=== PATIENT | male | born 1940 | race Caucasian/White ===

== ENCOUNTER 2019-08-31 05:56 | Day surgery (SDC) | payer MEDICARE, BC ==
[~2019-08-31 05:56] MED LIST: DEXAMETHASONE SOD PHOSPHATE 10 MG/ML 1 ML VIAL IV ONE; HEPARIN SODIUM,PORCINE 5,000 UNIT/ML 1 ML VIAL SQ ONE; HYDROmorphone 0.5 MG/0.5 ML SYRINGE IVP PRN; LACTATED RINGERS 1,000 ML IV SCH; SCOPOLAMINE 1.5MG/72HR PATCH TRANSDERM ONE
[2019-08-31] MEDS ORDERED: CLINDAMYCIN 900 MG in DEXTROSE 5% IN WATER 50 ML IVPB ONE ×2 (06:00)
[2019-08-31] MEDS ORDERED: LEVOFLOXACIN 500MG-D5W PMX 500 MG in DEXTROSE/WATER 1 100ML.BAG IVPB ONE (06:00)
[2019-08-31 06:34] VITALS: BP 138/64; PULSE 53; RESP 16; TEMP 97.3
[2019-08-31] MEDS: LIDOCAINE 1% 20 ML VIAL (10MG/ML) FOR IV START INTRADERMA PRN ×2 (06:48→07:00)
[2019-08-31] MEDS: ONDANSETRON 4 MG/2 ML VIAL IVP ONE ×2 (06:50→07:00)
[2019-08-31 06:57] LABS: Glucose,Whole Blood 94 mg/dL (75-99)
[2019-08-31 06:58] LABS: Basophils % (A) 0 %; Eosinophils # (A) 0.2 k/uL (0-0.7); Eosinophils % (A) 6 %; HCT 35.7 % (39.0-53.0); HGB 11.7 gm/dL (13.0-17.5); Lymphocytes # (A) 0.7 k/uL (1.0-4.8); Lymphocytes % (A) 19 %; MCH 28.7 pg (25.0-35.0); MCHC 32.6 g/dL (31.0-37.0); Mean Platelet Volume 7.6; Monocytes # (A) 0.3 k/uL (0-1.0); Monocytes % (A) 8 %; Neutrophils # (A) 2.2 k/uL (1.3-7.7); Neutrophils % (A) 64 %; Platelet Count 123 k/uL (150-450); RBC 4.06 m/uL (4.30-5.90); RDW 13.7 % (11.5-15.5); WBC 3.5 k/uL (3.8-10.6)
[2019-08-31 07:19] LABS: African American GFR (CKD) >90 (>60 ml/min/1.73 sqM); Anion Gap 5 mmol/L; Blood Urea Nitrogen 27 mg/dL (9-20); Calcium 9.4 mg/dL (8.4-10.2); Carbon Dioxide 28 mmol/L (22-30); Chloride 105 mmol/L (98-107); Glucose 97 mg/dL (74-99); Potassium 4.4 mmol/L (3.5-5.1); Sodium 138 mmol/L (137-145)
[2019-08-31] MEDS ORDERED: BUPIVACAINE (PF) 0.25% 30 ML VIAL SQ ONE (07:33)
== END 2019-08-31 08:09 | disposition home or self-care (01) ==
LOC: OR 05:56
PROVIDERS: ATTEND Surgery
DX: K40.90 Unilateral inguinal hernia, without obstruction or gangrene, not specified as recurrent (principal); I10 Essential (primary) hypertension; E78.5 Hyperlipidemia, unspecified; J45.909 Unspecified asthma, uncomplicated; E11.9 Type 2 diabetes mellitus without complications; H91.90 Unspecified hearing loss, unspecified ear; R41.3 Other amnesia; Z90.49 Acquired absence of other specified parts of digestive tract; Z86.718 Personal history of other venous thrombosis and embolism; Z79.01 Long term (current) use of anticoagulants; Z79.84 Long term (current) use of oral hypoglycemic drugs; Z79.82 Long term (current) use of aspirin; Z79.52 Long term (current) use of systemic steroids; Z79.899 Other long term (current) drug therapy; Z88.1 Allergy status to other antibiotic agents; Z88.2 Allergy status to sulfonamides; Z91.048 Other nonmedicinal substance allergy status; Z91.09 Other allergy status, other than to drugs and biological substances; Z53.9 Procedure and treatment not carried out, unspecified reason
CPT/HCPCS: 80048; 85025; J2405

== ENCOUNTER 2019-09-28 08:08 | Day surgery (SDC) | payer MEDICARE, BC ==
[2019-09-23 15:10] VITALS: BMI 25.0
--- NOTE | 2019-09-28 07:40 | P.GSHP ---
History of Present Illness H&P Date: 09/28/19 Chief Complaint: Left inguinal hernia 78-year-old male seen in June. Patient has complaints of a bulge in the left groin. Present for the last few years. Seemed to start after lifting a heavy [place]. Mild discomfort at times. No significant size changes recently. No symptoms on the right. Past Medical History Past Medical History: Cancer, Diabetes Mellitus, Deep Vein Thrombosis (DVT), Hearing Disorder / Deafness, Hyperlipidemia, Hypertension, Memory Impairment, Osteoarthritis (OA) Additional Past Medical History / Comment(s): LEFT LEG DVT 06/12/2016.Right lower extremity DVT about 20 years ago after injury to that leg. History of Any Multi-Drug Resistant Organisms: None Reported Past Surgical History: Cholecystectomy, Orthopedic Surgery Additional Past Surgical History / Comment(s): RIGHT KNEE (UNK SPECIFICS). Past Anesthesia/Blood Transfusion Reactions: Previous Problems w/ Anesthesia Additional Past Anesthesia/Blood Transfusion Reaction / Comment(s): CONFUSED AFTER ANESTHESIA. Smoking Status: Never smoker - Past Family History Mother Family Medical History: Cancer Father Family Medical History: Myocardial Infarction ([place]) Medications and Allergies Home Medications Medication Instructions Recorded Confirmed Type metFORMIN HCL 500 mg PO BID 06/19/16 09/23/19 History Aspirin EC [Ecotrin Low Dose] 81 mg PO DAILY #30 tablet. 06/23/16 09/23/19 Rx Diltiazem Cd [Cardizem Cd] 180 mg PO HS 07/11/16 09/23/19 History Triamcinolone 0.1% Cream [Kenalog 1 applicatio TOPICAL BID PRN 07/11/16 09/23/19 History 0.1% Cream] Atorvastatin [Lipitor] 40 mg PO QAM 08/29/19 09/23/19 History Calcium Carbonate [Calcium] 600 mg PO DAILY 08/29/19 09/23/19 History Cholecalciferol [Vitamin D3 (25 1,000 unit PO DAILY 08/29/19 09/23/19 History Mcg = 1000 Iu)] Fish Oil/Dha/Epa [Fish Oil 1,200 1 cap PO DAILY 08/29/19 09/23/19 History mg Fish Oil] Lisinopril [Zestril] 5 mg PO HS 08/29/19 09/23/19 History Rivaroxaban [Xarelto] 15 mg PO QAM 08/29/19 09/23/19 History Warfarin [Coumadin] 2.5 mg PO SUWETHFRSA 08/29/19 09/23/19 History Warfarin [Coumadin] 5 mg PO MOTU 08/29/19 09/23/19 History Terazosin HCl [Hytrin] 15 mg PO HS 09/23/19 09/23/19 History Allergies Allergy/AdvReac Type Severity Reaction Status Date / Time bacitracin Allergy Rash/Hives Verified 09/23/19 15:04 [From Neosporin ([id number])] bacitracin zinc Allergy Rash/Hives Verified 09/23/19 15:04 [From Neosporin ([id number]-aaw-[id number])] cephalexin monohydrate Allergy Rash/Hives Verified 09/23/19 15:04 [From Keflex] neomycin sulfate Allergy Rash/Hives Verified 09/23/19 15:04 [From Neosporin (gic-yzh-[id number])] polymyxin B Allergy Rash/Hives Verified 09/23/19 15:04 [From Neosporin ([id number])] Sulfa (Sulfonamide Allergy Rash/Hives Verified 09/23/19 15:04 Antibiotics) adhesive tape AdvReac Rash/Hives Verified 09/23/19 15:04 ultrasound coupling medium AdvReac Rash/Hives Verified 09/23/19 15:04 Surgical - Exam Physical exam: General: Well-developed, well-nourished HEENT: Normocephalic, sclerae nonicteric Abdomen: Nontender, nondistended, reducible left inguinal hernia mild to moderate sized, no palpable hernia on left Extremities: No edema Neuro: Alert and oriented Assessment and Plan (1) Left inguinal hernia Narrative/Plan: Will proceed with laparoscopic da Jennie assisted left inguinal hernia repair with mesh, possible open, possible bilateral at this time. Risks of bleeding, infection, recurrence, bladder and bowel injury, numbness, nerve injury, conversion to an open procedure were discussed with the patient. The patient understands and wishes to proceed. Status: Acute Code(s): K40.90 - UNIL INGUINAL HERNIA, W/O OBST OR GANGR, NOT SPCF RECUR SNOMED Code(s): 973328858
[~2019-09-28 08:08] MED LIST changes: +CLINDAMYCIN 900 MG in DEXTROSE 5% IN WATER 50 ML IVPB ONE; -LACTATED RINGERS 1,000 ML IV SCH; +LEVOFLOXACIN 500MG-D5W PMX 500 MG in DEXTROSE/WATER 1 100ML.BAG IVPB ONE; +MIDAZOLAM 2 MG/2 ML VIAL IV PRN; +ONDANSETRON 4 MG/2 ML VIAL IVP ONE; -SCOPOLAMINE 1.5MG/72HR PATCH TRANSDERM ONE
[2019-09-28] MEDS: LACTATED RINGERS 1,000 ML IV SCH (08:51)
[2019-09-28 08:55] LABS: Glucose,Whole Blood 99 mg/dL (75-99)
[2019-09-28] MEDS ORDERED: TAMSULOSIN 0.4 MG CAP.ER.24H PO ONE (09:20)
[2019-09-28 09:27] LABS: Basophils % (A) 1 %; Eosinophils # (A) 0.2 k/uL (0-0.7); Eosinophils % (A) 5 %; HCT 35.1 % (39.0-53.0); HGB 11.7 gm/dL (13.0-17.5); Lymphocytes # (A) 0.5 k/uL (1.0-4.8); Lymphocytes % (A) 10 %; MCH 29.1 pg (25.0-35.0); MCHC 33.3 g/dL (31.0-37.0); MCV 87.4 fL (80.0-100.0); Mean Platelet Volume 6.8; Monocytes # (A) 0.4 k/uL (0-1.0); Monocytes % (A) 8 %; Neutrophils # (A) 3.3 k/uL (1.3-7.7); Neutrophils % (A) 74 %; Platelet Count 132 k/uL (150-450); RBC 4.01 m/uL (4.30-5.90); WBC 4.5 k/uL (3.8-10.6)
[2019-09-28 09:31] LABS: INR 1.2 (<1.2); Prothrombin Time 12.9 sec (9.0-12.0)
[2019-09-28] MEDS ORDERED: ROCURONIUM BROMIDE 10 MG/ML 10 ML VIAL IV ONE (09:55)
[2019-09-28] MEDS ORDERED: GLYCOPYRROLATE 0.2 MG/ML 2 ML VIAL ONE (09:55)
[2019-09-28] MEDS ORDERED: LIDOCAINE 1% INJ 10MG/ML (20 ML MDV) ONE (09:55)
[2019-09-28] MEDS ORDERED: SUCCINYLCHOLINE CHLORIDE 100 MG/5 ML SYR IV ONE (09:55)
[2019-09-28] MEDS ORDERED: PROPOFOL 10 MG/ML 20 ML VIAL IV ONE (09:55)
[2019-09-28] MEDS ORDERED: fentaNYL (PF) 50 MCG/ML 2 ML AMP ONE (09:55)
[2019-09-28] MEDS ORDERED: NEOSTIGMINE 1 MG/ML 10 ML VIAL ONE (09:55)
[2019-09-28] MEDS ORDERED: BUPIVACAINE (PF) 0.25% 30 ML VIAL SQ ONE (10:23)
[2019-09-28] MEDS ORDERED: NALOXONE 0.4 MG/ML 1 ML VIAL IV PRN (11:44)
[2019-09-28] MEDS ORDERED: traMADol 50 MG TAB PO PRN (11:44)
--- NOTE | 2019-09-28 11:47 | P.OP ---
Date of Procedure: 09/28/19 Procedure(s) Performed: PREOPERATIVE DIAGNOSIS: Left inguinal hernia POSTOPERATIVE DIAGNOSIS: Same PROCEDURE: Laparoscopic repair left inguinal hernia with the da Jennie robot assistance with mesh SURGEON: Stewart EBL: Minimal ANESTHESIA: General COMPLICATIONS: None OPERATIVE PROCEDURE: Patient was placed in the operating table in the supine position. The patient was placed under general anesthesia. The abdomen was prepped and draped in usual sterile fashion. A small curvilinear supraumbilical incision was made. The fascia was retracted anteriorly with Irma forceps. The Veress needle was inserted. The saline drop test was normal. Insufflation took place to 15 mmHg. A 5 mm trocar was placed into the peritoneal cavity. This was later switched to a 8 mm trocar. 2 additional 8 mm trochars were placed in the right upper quadrant and left upper quadrant under visualization. The robotic arms were then brought in and docked into place. The fenestrated bipolar was used in the left arm and the laparoscopic frank was utilized in the right arm. A 30 12 mm scope was used in the up position. The peritoneal cavity was inspected. The patient had an obvious indirect hernia on the left-hand side. Nothing was seen on the right-hand side. The peritoneum was incised in a horizontal fashion cephalad to the internal inguinal ring. Following that careful dissection of the preperitoneal space took place. This took place using both electrocautery, sharp dissection but primarily blunt dissection. Visualization of the pubic tubercle and Alfonzo's ligament took place medially. Full dissection took place laterally as well. The hernia sac was fully dissected. The patient had a moderate-sized indirect hernia and a small direct hernia identified. Once we had adequate space the 15 x 10 progrip mesh was advanced into the preperitoneal space and flattened out appropriately to cover all potential hernia sites. No sutures were used. The peritoneal defect was then closed using a locking 2-0 VLok suture. The defect in the peritoneum was closed using a running 3-0 Vicryl stitch. The pneumoperitoneum was then evacuated. The skin of all 3 sites was closed using a 4-0 Monocryl stitch. Skin glue was then applied. DISPOSITION: Stable to recovery room
[2019-09-28 11:52] LABS: Glucose,Whole Blood 141 mg/dL (75-99)
[2019-09-28 11:55] VITALS: TEMP 97.1
[2019-09-28] MEDS ORDERED: HYDROmorphone 0.5 MG/0.5 ML SYRINGE IVP ONE (12:49)
[2019-09-28] MEDS ORDERED: traMADol 50 MG TAB PO ONE (12:50)
[2019-09-28 13:10] VITALS: PULSE 46; RESP 18
[2019-09-28 13:40] VITALS: BP 133/67
== END 2019-09-28 14:55 | disposition home or self-care (01) ==
LOC: OR 08:08
PROVIDERS: ATTEND Surgery
DX: K40.90 Unilateral inguinal hernia, without obstruction or gangrene, not specified as recurrent (principal); I10 Essential (primary) hypertension; E78.5 Hyperlipidemia, unspecified; E11.9 Type 2 diabetes mellitus without complications; M19.90 Unspecified osteoarthritis, unspecified site; R41.3 Other amnesia; H91.90 Unspecified hearing loss, unspecified ear; Z86.718 Personal history of other venous thrombosis and embolism; Z88.2 Allergy status to sulfonamides; Z88.1 Allergy status to other antibiotic agents; Z91.09 Other allergy status, other than to drugs and biological substances; Z88.6 Allergy status to analgesic agent; Z79.01 Long term (current) use of anticoagulants; Z79.82 Long term (current) use of aspirin; Z79.84 Long term (current) use of oral hypoglycemic drugs; Z79.899 Other long term (current) drug therapy; Z90.49 Acquired absence of other specified parts of digestive tract; Z82.49 Family history of ischemic heart disease and other diseases of the circulatory system
CPT/HCPCS: 85025; 85610; 49650; C1781; J1644; J1100; J2710; J2405; J2001; J3010; J0330; J2704; J1170

== ENCOUNTER 2021-03-12 07:17 | Day surgery (SDC) | payer MEDICARE, BC ==
[2021-03-08 12:54] VITALS: BMI 25.7
[~2021-03-12 07:17] MED LIST changes: -CLINDAMYCIN 900 MG in DEXTROSE 5% IN WATER 50 ML IVPB ONE; -DEXAMETHASONE SOD PHOSPHATE 10 MG/ML 1 ML VIAL IV ONE; -HEPARIN SODIUM,PORCINE 5,000 UNIT/ML 1 ML VIAL SQ ONE; -HYDROmorphone 0.5 MG/0.5 ML SYRINGE IVP PRN; +LACTATED RINGERS 1,000 ML IV SCH; -LEVOFLOXACIN 500MG-D5W PMX 500 MG in DEXTROSE/WATER 1 100ML.BAG IVPB ONE; -MIDAZOLAM 2 MG/2 ML VIAL IV PRN; -ONDANSETRON 4 MG/2 ML VIAL IVP ONE
[2021-03-12 07:40] VITALS: TEMP 97
[2021-03-12 07:47] LABS: Glucose,Whole Blood 80 mg/dL (75-99)
[2021-03-12] MEDS ORDERED: PROPOFOL 10 MG/ML 20 ML VIAL IV ONE (07:57)
--- NOTE | 2021-03-12 07:59 | P.GSHP ---
History of Present Illness H&P Date: 03/12/21 Chief Complaint: Rectal bleeding Patient or today for colonoscopy. He is not sure when the last colonoscopy was. Apparently had a stool sample positive for cologuard. He denies active rectal bleeding. Past Medical History Past Medical History: Cancer, Diabetes Mellitus, Deep Vein Thrombosis (DVT), Hearing Disorder / Deafness, Hyperlipidemia, Hypertension, Memory Impairment, Osteoarthritis (OA) Additional Past Medical History / Comment(s): LEFT LEG DVT 06/12/2016. Right Leg DVT over 20 yrs ago after injury , hx of prostate cancer with radiation tx (2001?), positive cologard test. History of Any Multi-Drug Resistant Organisms: None Reported Past Surgical History: Cholecystectomy, Orthopedic Surgery Additional Past Surgical History / Comment(s): RIGHT KNEE SURGERY Past Anesthesia/Blood Transfusion Reactions: Previous Problems w/ Anesthesia Additional Past Anesthesia/Blood Transfusion Reaction / Comment(s): VERY CONFUSED AFTER ANESTHESIA (CHOLECYSTECTOMY) Past Psychological History: No Psychological Hx Reported Smoking Status: Never smoker Past Alcohol Use History: None Reported Past Drug Use History: None Reported - Past Family History Mother Family Medical History: Cancer Father Family Medical History: Myocardial Infarction ([place]) Medications and Allergies Home Medications Medication Instructions Recorded Confirmed Type metFORMIN HCL 500 mg PO BID 06/19/16 03/08/21 History Aspirin EC [Ecotrin Low Dose] 81 mg PO DAILY #30 tablet. 06/23/16 03/08/21 Rx Triamcinolone 0.1% Cream [Kenalog 1 applicatio TOPICAL BID PRN 07/11/16 03/08/21 History 0.1% Cream] Atorvastatin [Lipitor] 40 mg PO QAM 08/29/19 03/08/21 History Calcium Carbonate [Calcium] 600 mg PO DAILY 08/29/19 03/08/21 History Cholecalciferol [Vitamin D3 (25 1,000 unit PO DAILY 08/29/19 03/08/21 History Mcg = 1000 Iu)] Fish Oil/Dha/Epa [Fish Oil 1,200 1 cap PO DAILY 08/29/19 03/08/21 History mg Fish Oil] lisinopriL [Zestril] 5 mg PO HS 08/29/19 03/08/21 History Diltiazem HCl [Cartia Xt] 180 mg PO HS 03/08/21 03/08/21 History Donepezil HCl [Aricept] 10 mg PO DAILY 03/08/21 03/08/21 History Terazosin [Hytrin] 15 mg PO HS 03/08/21 03/08/21 History Warfarin [Coumadin] 2 mg PO DAILY 03/08/21 03/08/21 History Allergies Allergy/AdvReac Type Severity Reaction Status Date / Time latex Allergy Unknown Rash/Hives Verified 03/12/21 07:31 bacitracin Allergy Rash/Hives Verified 03/12/21 07:31 [From Neosporin ([id number])] bacitracin zinc Allergy Rash/Hives Verified 03/12/21 07:31 [From Neosporin (oro-wym-[id number])] cephalexin monohydrate Allergy Rash/Hives Verified 03/12/21 07:31 [From Keflex] neomycin sulfate Allergy Rash/Hives Verified 03/12/21 07:31 [From Neosporin ([id number]-mlz-[id number])] polymyxin B Allergy Rash/Hives Verified 03/12/21 07:31 [From Neosporin ([id number]-zpa-[id number])] Sulfa (Sulfonamide Allergy Rash/Hives Verified 03/12/21 07:31 Antibiotics) adhesive tape AdvReac Rash/Hives Verified 03/12/21 07:31 ultrasound coupling medium AdvReac Rash/Hives Verified 03/12/21 07:31 Surgical - Exam Vital Signs Temp Pulse Resp BP Pulse Ox 97.0 F L 56 L 17 163/70 97 03/12/21 07:39 03/12/21 07:39 03/12/21 07:39 03/12/21 07:39 03/12/21 07:39 Physical exam: General: Well-developed, well-nourished HEENT: Normocephalic, sclerae nonicteric Abdomen: Nontender, nondistended Extremities: No edema Neuro: Alert and oriented Assessment and Plan (1) Rectal bleeding Narrative/Plan: Will proceed with colonoscopy Current Visit: Yes Status: Acute Code(s): K62.5 - HEMORRHAGE OF ANUS AND RECTUM SNOMED Code(s): 51935003
--- NOTE | 2021-03-12 08:22 | P.PCN ---
Date of Procedure: 03/12/21 Procedure(s) Performed: PREOPERATIVE DIAGNOSIS: Blood in stool POSTOPERATIVE DIAGNOSIS: Ascending colon polyp, sigmoid colon polyp, diverticulosis PROCEDURE: Colonoscopy with snare polypectomy ANESTHESIA: MAC SURGEON: Krishna William M.D. SPECIMENS: Polyps ENDOSCOPIC PROCEDURE: The patient was placed on the endoscopy table in the left decubitus position. The Olympus colonoscope was inserted into the anus and passed under direct visualization to the base of the cecum. The appendiceal orifice was visualized. From that point the scope was slowly withdrawn inspecting all surfaces carefully. There were no neoplastic inflammatory or polypoid lesions throughout the cecum. In the ascending colon a small polyp was seen and removed using the snare with cautery technique. The remainder of the ascending transverse and descending colon appeared normal. In the sigmoid colon a small polyp was seen and removed using the snare with cautery technique as well. The remainder of the sigmoid and rectum was now. There is mild left- sided diverticulosis. Digital rectal examination was normal. The patient was taken to the recovery room in stable condition per anesthesia guidelines. RECOMMENDATIONS: Await biopsy results. Anticipate follow-up colonoscopy 5-7 years.
[2021-03-12 08:51] VITALS: BP 162/81; PULSE 52; RESP 18
== END 2021-03-12 09:09 | disposition home or self-care (01) ==
LOC: ORWHC2ENDO 07:17
PROVIDERS: ATTEND Surgery
DX: D12.2 Benign neoplasm of ascending colon (principal); K57.30 Diverticulosis of large intestine without perforation or abscess without bleeding; E11.9 Type 2 diabetes mellitus without complications; I10 Essential (primary) hypertension; I48.91 Unspecified atrial fibrillation; E78.5 Hyperlipidemia, unspecified; M19.90 Unspecified osteoarthritis, unspecified site; F03.90 Unspecified dementia, unspecified severity, without behavioral disturbance, psychotic disturbance, mood disturbance, and anxiety; Z09 Encounter for follow-up examination after completed treatment for conditions other than malignant neoplasm; Z79.01 Long term (current) use of anticoagulants; Z79.82 Long term (current) use of aspirin; Z79.84 Long term (current) use of oral hypoglycemic drugs; Z79.899 Other long term (current) drug therapy; Z80.9 Family history of malignant neoplasm, unspecified; Z82.49 Family history of ischemic heart disease and other diseases of the circulatory system; Z85.46 Personal history of malignant neoplasm of prostate; Z86.718 Personal history of other venous thrombosis and embolism; Z91.040 Latex allergy status; Z88.2 Allergy status to sulfonamides; Z88.8 Allergy status to other drugs, medicaments and biological substances; Z91.048 Other nonmedicinal substance allergy status
CPT/HCPCS: 88305; 45385; J2704

== ENCOUNTER 2021-07-23 09:17 | Emergency (ER) | payer MEDICARE, BC ==
[2021-07-23 09:23] VITALS: RESP 18; TEMP 98.3
--- NOTE | 2021-07-23 10:02 | ED ---
General Adult HPI - General Chief complaint: Extremity Problem,Nontraumatic Stated complaint: Rt Foot Injury Time Seen by Provider: 07/23/21 09:47 Source: patient, RN notes reviewed Mode of arrival: ambulatory Limitations: no limitations - History of Present Illness Initial comments: Patient is a 80-year-old male presented to the emergency room today with chief complaint of an injury to the right foot. He does admit that he was walking today and he felt a pop to the lateral aspect of the fifth metatarsal. Patient has some swelling in this area. He denies any other injury or any other complaints at this time. - Related Data Home Medications Medication Instructions Recorded Confirmed metFORMIN HCL [Glucophage] 1,000 mg PO BID 06/19/16 07/23/21 Calcium Carbonate [Calcium] 600 mg PO DAILY 08/29/19 07/23/21 Cholecalciferol [Vitamin D3 (25 1,000 unit PO DAILY 08/29/19 07/23/21 Mcg = 1000 Iu)] Fish Oil/Dha/Epa [Fish Oil 1,200 1 cap PO DAILY 08/29/19 07/23/21 mg Fish Oil] lisinopriL [Zestril] 5 mg PO HS 08/29/19 07/23/21 Diltiazem HCl [Cartia Xt] 180 mg PO HS 03/08/21 07/23/21 Donepezil HCl [Aricept] 10 mg PO DAILY 03/08/21 07/23/21 Terazosin [Hytrin] 15 mg PO HS 03/08/21 07/23/21 Warfarin [Coumadin] 2 mg PO HS 03/08/21 07/23/21 Atorvastatin [Lipitor] 80 mg PO DAILY 07/23/21 07/23/21 Previous Rx's Medication Instructions Recorded Aspirin EC [Ecotrin Low Dose] 81 mg PO DAILY #30 tablet. 06/23/16 Allergies Allergy/AdvReac Type Severity Reaction Status Date / Time latex Allergy Unknown Rash/Hives Verified 07/23/21 11:31 bacitracin Allergy Rash/Hives Verified 07/23/21 11:31 [From Neosporin ([id number]-ikd-[id number])] bacitracin zinc Allergy Rash/Hives Verified 07/23/21 11:31 [From Neosporin ([id number]-zow-tamby)] cephalexin monohydrate Allergy Rash/Hives Verified 07/23/21 11:31 [From Keflex] neomycin sulfate Allergy Rash/Hives Verified 07/23/21 11:31 [From Neosporin (viu-ikh-vqpin)] polymyxin B Allergy Rash/Hives Verified 07/23/21 11:31 [From Neosporin (jii-emj-habhv)] Sulfa (Sulfonamide Allergy Rash/Hives Verified 07/23/21 11:31 Antibiotics) adhesive tape AdvReac Rash/Hives Verified 07/23/21 11:31 ultrasound coupling medium AdvReac Rash/Hives Verified 07/23/21 11:31 Review of Systems ROS Statement: Those systems with pertinent positive or pertinent negative responses have been documented in the HPI. ROS Other: All systems not noted in ROS Statement are negative. Past Medical History Past Medical History: Cancer, Diabetes Mellitus, Deep Vein Thrombosis (DVT), Hearing Disorder / Deafness, Hyperlipidemia, Hypertension, Memory Impairment, Osteoarthritis (OA) Additional Past Medical History / Comment(s): LEFT LEG DVT 06/12/2016. Right Leg DVT over 20 yrs ago after injury , hx of prostate cancer with radiation tx (2001?), positive cologard test. History of Any Multi-Drug Resistant Organisms: None Reported Past Surgical History: Cholecystectomy, Orthopedic Surgery Additional Past Surgical History / Comment(s): RIGHT KNEE SURGERY Past Anesthesia/Blood Transfusion Reactions: Previous Problems w/ Anesthesia Additional Past Anesthesia/Blood Transfusion Reaction / Comment(s): VERY CONFUSED AFTER ANESTHESIA (CHOLECYSTECTOMY) Past Psychological History: No Psychological Hx Reported Smoking Status: Never smoker Past Alcohol Use History: None Reported Past Drug Use History: None Reported - Past Family History Mother Family Medical History: Cancer Father Family Medical History: Myocardial Infarction ([place]) General Exam - General Exam Comments Initial Comments: General: The patient is awake and alert, in no distress, and does not appear acutely ill. Neck: The neck is supple. Respiratory: Lungs are clear to auscultation, respirations are non-labored, breath sounds are equal. Musculoskeletal: Patient does have some swelling over the fifth metatarsal posteriorly. Tender in this location. There is no redness. No tenderness to the right ankle remaining aspect of the foot. Pedal pulses 2+ was sensations intact. Neurological: A&O x 3. CN II-XII intact, There are no obvious motor or sensory deficits. Coordination appears grossly intact. Speech is normal. Skin: Skin is warm and dry and no rashes or lesions are noted. Psychiatric: Normal mood and affect. Limitations: no limitations Course Vital Signs 07/23/21 09:20 Temperature 98.3 F Pulse Rate 71 Respiratory 18 Rate Blood Pressure 135/71 O2 Sat by Pulse 98 Oximetry Medical Decision Making - Medical Decision Making X-rays were reviewed and does show afracture of the fifth metatarsal. Patient does have tenderness in this area. Patient states he was waiting for testing to his commission specialist follow-up with. Patient discussed about options of the splint and crutches or walker here in emergency room if she has declined. Patient is agreeable to a postop shoe. He is advised to follow-up with his commission specialist orthopedics over the next 2 days. Advised to return for any other concerns. Disposition Clinical Impression: Foot fracture Disposition: HOME SELF-CARE Condition: Good Instructions (If sedation given, give patient instructions): Foot Fracture in Adults (ED) Additional Instructions: Please follow-up with commission specialist/orthopedics over the next 2 days. Use postop shoe when up and moving around. Is patient prescribed a controlled substance at d/c from ED?: No Referrals: Chioma King DO [Primary Care Provider] - 1-2 days Colton Rose MD [STAFF PHYSICIAN] - 1-2 days Time of Disposition: 11:41
--- NOTE | 2021-07-23 10:34 | XR ---
EXAMINATION TYPE: XR foot complete RT DATE OF EXAM: 07/23/2021 COMPARISON: None HISTORY: Pain TECHNIQUE: 3 view right foot FINDINGS: There is an occult fracture of the proximal diaphysis of the fifth metatarsal.. Overlying s oft tissues appear normal. Plantar and Achilles tendon calcaneal heel spurs are present. Joint spaces appear preserved. No addit ional fractures are evident. IMPRESSION: 1. Occult fracture proximal diaphysis fifth metatarsal.
[2021-07-23 12:08] VITALS: BP 115/65; PULSE 61
== END 2021-07-23 12:07 | disposition home or self-care (01) ==
LOC: EC 09:17
DX: S92.351A Displaced fracture of fifth metatarsal bone, right foot, initial encounter for closed fracture (principal); E11.9 Type 2 diabetes mellitus without complications; I10 Essential (primary) hypertension; E78.5 Hyperlipidemia, unspecified; M19.90 Unspecified osteoarthritis, unspecified site; Z91.040 Latex allergy status; Z88.1 Allergy status to other antibiotic agents; Z88.2 Allergy status to sulfonamides; Z91.09 Other allergy status, other than to drugs and biological substances; Z91.041 Radiographic dye allergy status; Z79.84 Long term (current) use of oral hypoglycemic drugs; Z79.899 Other long term (current) drug therapy; X50.9XXA Other and unspecified overexertion or strenuous movements or postures, initial encounter; Y93.01 Activity, walking, marching and hiking
CPT/HCPCS: 99283

== ENCOUNTER → 2021-09-02 | Outpatient (CLI) | payer MEDICARE, BC ==
--- NOTE | 2021-09-02 11:07 | XR ---
Right foot HISTORY: Z87.0282, M.598 3 views of the right foot correlated prior exam 07/23/2021 There is a proximal fifth metatarsal fracture which is nondisplaced, finding present on prior exam, t here is some associated soft tissue swelling. There is a plantar calcaneus spur. Enthesophyte present at the insertion of the Achilles tendon. There are dense vascular calcifications present. Degenerati ve changes present at the intertarsal, tarsometatarsal joints, first metatarsophalangeal joint and ti biotalar joint. Bone mineralization is reduced. IMPRESSION: Proximal fifth metatarsal fracture. Osteopenia. Osteoarthritis.
== END | disposition home or self-care (01) ==
LOC: RADXRMAIN 09:27
PROVIDERS: ATTEND Podiatrist Foot Surgery
DX: S92.354A Nondisplaced fracture of fifth metatarsal bone, right foot, initial encounter for closed fracture (principal)

== ENCOUNTER → 2021-09-30 | Outpatient (CLI) | payer MEDICARE, BC ==
--- NOTE | 2021-09-30 08:48 | XR ---
EXAMINATION TYPE: XR foot complete RT DATE OF EXAM: 09/30/2021 CLINICAL HISTORY: pain TECHNIQUE: Frontal, lateral and oblique images of the right foot are obtained. COMPARISON: 09/02/2021 FINDINGS: Previously noted transversely oriented fracture at the base of the fifth right metatarsal p ersists although there is moderate callus formation seen. Mild persistent soft tissue swelling. No ad ditional fractures evident. The joint spaces appear within normal limits. The overlying soft tissue appears unremarkable. IMPRESSION: Healing fracture of the right fifth metatarsal although fracture line continues to be visible. Contin ued follow-up recommended.
== END | disposition home or self-care (01) ==
LOC: RADXRMAIN 08:08
PROVIDERS: ATTEND Podiatrist Foot Surgery
DX: S92.351D Displaced fracture of fifth metatarsal bone, right foot, subsequent encounter for fracture with routine healing (principal)

== ENCOUNTER → 2021-12-11 | Outpatient (CLI) | payer MEDICARE, BC ==
[2021-12-11 08:51] LABS: African American GFR (CKD) >90 (>60 ml/min/1.73 sqM); Blood Urea Nitrogen 24 mg/dL (9-20); Non-African American GFR(CKD) 79 (>60 ml/min/1.73 sqM)
--- NOTE | 2021-12-11 10:50 | CT ---
EXAMINATION TYPE: CT abdomen pelvis wo/w con DATE OF EXAM: 12/11/2021 COMPARISON: 06/05/2016 HISTORY: 81-year-old male C61, Prostate Cancer TECHNIQUE: Contiguous axial scanning of the abdomen and pelvis before and after administration of 100 ml Isovue 300 IV contrast. Delayed images through the kidneys and coronal/sagittal reconstructions performed. CT DLP: 2908 mGycm Automated exposure control for dose reduction was used. FINDINGS: Heart normal size without pericardial effusion. LAD and circumflex coronary artery calcifications are present. Visualized lower lungs are clear. No focal liver lesion or biliary ductal dilatation. Portal venous system is patent. Cholecystectomy clips. Adrenal glands, spleen, and pancreas within normal limits. Kidneys show bilateral renal cysts measuring up to 3.0 cm on the left and 2.2 cm on the right. On the left, there are approximately 6 calculi, probably more numerous and some clustered tiny calcul i layering within the calyceal systems is moderate hydronephrosis and a 1.6 x 1.1 cm calculus just be yond the left UPJ. No dilated small bowel, free fluid, or free air. No mesenteric or retroperitoneal lymphadenopathy. Oral contrast has progressed into the ascending colon. Moderate colonic stool burden. There is a mode rate-sized indirect left inguinal hernia containing nonobstructed proximal sigmoid colon loop. Sigmoi d diverticulosis. There is trace adjacent strandy pelvic edema/fluid, reference axial image 80. Some mild inflammation suggestive along the distal sigmoid difficult to exclude, axial image 78. Bladder urine distended. Prostate gland measures 4.6 cm wide. Multiple pelvic phleboliths. No pelvic lymphadenopathy seen. Bones: Moderate degenerative change at the hips. Degenerative bony ankylosis of the SI joints. Hypert rophic facet arthropathy throughout the lumbar spine. Stable stellate bone island right posterior L5 vertebral body. IMPRESSION: 1. A 1.6 X 1.1 CM CALCULUS JUST BEYOND THE LEFT UPJ PRODUCING MODERATE LEFT-SIDED OBSTRUCTIVE UROPATH Y. 2. NUMEROUS ADDITIONAL NONOBSTRUCTIVE LEFT RENAL CALCULI ARE PRESENT. MANY ARE VERY SMALL CALCULI CLU STERED IN A COUPLE MINOR CALYCES AND COULD POTENTIALLY PASS IN THE FUTURE. 3. THERE IS MILD STRANDY EDEMA/FLUID WITHIN THE PELVIS . GIVEN THE PROMINENT SIGMOID DIVERTICULOSIS J UST ADJACENT, CORRELATE CLINICALLY TO EXCLUDE MILD ACUTE DIVERTICULITIS. NO ABSCESS OR FREE AIR. 4. PROSTATE GLAND MEASURES 4.6 CM WIDE. NO SUSPICIOUS LYMPHADENOPATHY OR OTHERWISE EVIDENCE FOR METAS TATIC DISEASE IN THE ABDOMEN OR PELVIS. 5. NOTE A MODERATE-SIZED INDIRECT LEFT INGUINAL HERNIA CONTAINING LOOP OF NONOBSTRUCTED PROXIMAL SIGM OID COLON.
--- NOTE | 2021-12-11 13:55 | NM ---
EXAMINATION TYPE: NM bone scan whole body DATE OF EXAM: 12/11/2021 COMPARISON: NONE HISTORY: C61 prostate ca Delayed whole-body scanning was performed following the injection of 20.9 mCi Tc 99m MDP. Images acq uired 3 hours post injection. FINDINGS: There is degenerative uptake about the shoulders, bilateral hips, bilateral knees, right ankle and ri ght mid foot. No intense uptake to suggest bony metastatic disease. Degenerative uptake mid and lower thoracic spine as well as lower lumbar spine. Hydronephrosis left kidney. IMPRESSION: No scintigraphic evidence to suggest osseous metastases
== END | disposition home or self-care (01) ==
LOC: RADCTMAIN 07:58
PROVIDERS: ATTEND Urology
DX: C61 Malignant neoplasm of prostate (principal); N13.2 Hydronephrosis with renal and ureteral calculous obstruction; K40.90 Unilateral inguinal hernia, without obstruction or gangrene, not specified as recurrent; K57.30 Diverticulosis of large intestine without perforation or abscess without bleeding
CPT/HCPCS: 82565; 84520; 74178; 36415; 78306; A9503; Q9967

== ENCOUNTER → 2021-12-20 | Outpatient (CLI) | payer MEDICARE, BC ==
[2021-12-20 17:32] LABS: Basophils # (A) 0.03 X 10*3/uL (0.00-0.10); Basophils % (A) 0.6 %; HCT 37.5 % (39.6-50.0); HGB 11.2 g/dL (13.0-17.0); Immature Grans, Automated 0.4 %; Lymphocytes # (A) 0.36 X 10*3/uL (0.90-5.00); Lymphocytes % (A) 7.4 %; MCH 28.9 pg (27.0-32.0); MCHC 29.9 g/dL (32.0-37.0); MCV 96.9 fL (80.0-97.0); Mean Platelet Volume 12.3 fL (9.5-12.2); Monocytes # (A) 0.45 X 10*3/uL (0.20-1.00); Monocytes % (A) 9.2 %; NRBC Per 100 WBC 0 /100 WBCS (0.0-0.0); Neutrophils # (A) 3.93 X 10*3/uL (1.80-7.70); Neutrophils % (A) 80.4 %; Platelet Count 126 X 10*3/uL (140-440); RBC 3.87 X 10*6/uL (4.40-5.60); RDW 13.3 % (11.5-14.5); WBC 4.89 X 10*3/uL (4.50-10.00)
[2021-12-20 17:35] LABS: African American GFR (CKD) 88.2 (60.0-200.0); Anion Gap 11.1 mmol/L (10.00-18.00); BUN/Creat Ratio 27.14 Ratio (12.00-20.00); Blood Urea Nitrogen 25.7 mg/dL (9.0-27.0); Calcium 9.6 mg/dL (8.7-10.3); Carbon Dioxide 23.9 mmol/L (20.0-27.5); Non-African American GFR(CKD) 76.1 (60.0-200.0); Potassium 5.5 mmol/L (3.5-5.5)
== END | disposition home or self-care (01) ==
LOC: LABPAT 09:05
PROVIDERS: ATTEND Urology
DX: Z01.812 Encounter for preprocedural laboratory examination (principal); N20.1 Calculus of ureter; N20.0 Calculus of kidney
CPT/HCPCS: 80048; 85025

== ENCOUNTER 2021-12-27 07:43 | Day surgery (SDC) | payer MEDICARE, BC ==
--- NOTE | 2021-12-24 20:27 | P.GSHP ---
History of Present Illness H&P Date: 12/24/21 Chief Complaint: Left flank discomfort The patient is a 81-year-old white male with a history of prostate cancer diagnosed in 2003. He was treated with radiation therapy and androgen deprivation therapy, but his PSA level has recently risen to 15.90. He has been advised to resume androgen deprivation therapy. He has recently experienced left flank discomfort. CT scan shows a 9 x 17 mm left UPJ calculus with a density of approximately 600 Hounsfield units. He was offered the options of ESWL versus ureteroscopy with laser lithotripsy and is chosen to undergo the latter. - Constitutional Constitutional: Denies chills, Denies fever - Genitourinary (Male) Genitourinary: Reports flank pain, Denies hematuria Past Medical History Past Medical History: Cancer, Diabetes Mellitus, Deep Vein Thrombosis (DVT), Hearing Disorder / Deafness, Hyperlipidemia, Hypertension, Memory Impairment, Osteoarthritis (OA) Additional Past Medical History / Comment(s): LEFT LEG DVT 06/12/2016. Right Leg DVT over 20 yrs ago after injury , hx of prostate cancer with radiation tx (2001?), positive cologard test. History of Any Multi-Drug Resistant Organisms: None Reported Past Surgical History: Cholecystectomy, Orthopedic Surgery Additional Past Surgical History / Comment(s): RIGHT KNEE SURGERY Past Anesthesia/Blood Transfusion Reactions: Previous Problems w/ Anesthesia Additional Past Anesthesia/Blood Transfusion Reaction / Comment(s): VERY CONFUSED AFTER ANESTHESIA (CHOLECYSTECTOMY) Past Psychological History: No Psychological Hx Reported Smoking Status: Never smoker Past Alcohol Use History: None Reported Past Drug Use History: None Reported - Past Family History Mother Family Medical History: Cancer Father Family Medical History: Myocardial Infarction ([place]) Medications and Allergies Home Medications Medication Instructions Recorded Confirmed Type metFORMIN HCL [Glucophage] 1,000 mg PO BID 06/19/16 07/23/21 History Aspirin EC [Ecotrin Low Dose] 81 mg PO DAILY #30 tablet. 06/23/16 07/23/21 Rx Calcium Carbonate [Calcium] 600 mg PO DAILY 08/29/19 07/23/21 History Cholecalciferol [Vitamin D3 (25 1,000 unit PO DAILY 08/29/19 07/23/21 History Mcg = 1000 Iu)] Fish Oil/Dha/Epa [Fish Oil 1,200 1 cap PO DAILY 08/29/19 07/23/21 History mg Fish Oil] lisinopriL [Zestril] 5 mg PO HS 08/29/19 07/23/21 History Diltiazem HCl [Cartia Xt] 180 mg PO HS 03/08/21 07/23/21 History Donepezil HCl [Aricept] 10 mg PO DAILY 03/08/21 07/23/21 History Terazosin [Hytrin] 15 mg PO HS 03/08/21 07/23/21 History Warfarin [Coumadin] 2 mg PO HS 03/08/21 07/23/21 History Atorvastatin [Lipitor] 80 mg PO DAILY 07/23/21 07/23/21 History Allergies Allergy/AdvReac Type Severity Reaction Status Date / Time latex Allergy Unknown Rash/Hives Verified 07/23/21 11:31 bacitracin Allergy Rash/Hives Verified 07/23/21 11:31 [From Neosporin ([id number])] bacitracin zinc Allergy Rash/Hives Verified 07/23/21 11:31 [From Neosporin ([id number])] cephalexin monohydrate Allergy Rash/Hives Verified 07/23/21 11:31 [From Keflex] neomycin sulfate Allergy Rash/Hives Verified 07/23/21 11:31 [From Neosporin ([id number])] polymyxin B Allergy Rash/Hives Verified 07/23/21 11:31 [From Neosporin ([id number])] Sulfa (Sulfonamide Allergy Rash/Hives Verified 07/23/21 11:31 Antibiotics) adhesive tape AdvReac Rash/Hives Verified 07/23/21 11:31 ultrasound coupling medium AdvReac Rash/Hives Verified 07/23/21 11:31 Surgical - Exam - General well developed, well nourished, no distress - Respiratory normal respiratory effort - Abdomen Abdomen: soft, non tender, no guarding, no rigid, no rebound - Genitourinary normal penis with no external lesions, testicles non-tender - Rectum Rectum: normal sphincter tone, no masses - Psychiatric oriented to time, oriented to person, oriented to place, speech is normal, memory intact Results - Imaging CT scan - abdomen: report reviewed, image reviewed Assessment and Plan (1) Calculus of kidney Status: Acute Code(s): N20.0 - CALCULUS OF KIDNEY SNOMED Code(s): 92006297 (2) Bilateral ureteral calculi Status: Acute Code(s): N20.1 - CALCULUS OF URETER SNOMED Code(s): 41088919 Plan: Cystoscopy, left ureteroscopy with Holmium laser lithotripsy and possible stone basketing, left ureteral stent insertion. In addition to the UPJ calculus, the patient has approximately 6 left renal calculi. He and his family understand that given the stone burden, he may require a secondary procedure. They are aware of potential risks, which include anesthesia, bleeding, infection, and ureteral injury.
[2021-12-26 08:45] VITALS: BMI 25.7
[~2021-12-27 07:43] MED LIST changes: +DEXAMETHASONE SOD PHOSPHATE 4 MG/ML 1 ML VIAL IV ONE; +HYDROmorphone 0.5 MG/0.5 ML SYRINGE IVP PRN; +LEVOFLOXACIN 500MG-D5W PMX 500 MG in DEXTROSE/WATER 1 100ML.BAG IVPB PRN; +MIDAZOLAM 2 MG/2 ML VIAL IV PRN; +ONDANSETRON 4 MG/2 ML VIAL IVP ONE
--- NOTE | 2021-12-27 08:24 | XR ---
EXAMINATION TYPE: XR KUB DATE OF EXAM: 12/27/2021 HISTORY: Pain Comparison: None.Single KUB is submitted for interpretation. Findings: Right renal calculi: None Visualized. Right ureteral calculi: None Visualized. Left renal calculi: Multiple left renal calculi suggestive measuring up to 1.7 cm. Left ureteral calculi: Left UPJ calculus measuring 1.9 x 1.0 cm. Pelvic calcifications: None Visualized. Bowel gas pattern is unremarkable. No free air. No mass effects. IMPRESSION: 1. Large
[2021-12-27 08:30] LABS: Glucose,Whole Blood 98 mg/dL (75-99)
[2021-12-27 08:58] LABS: INR 1.2 (<1.2); Partial Thromboplastin Time 24.2 sec (22.0-30.0); Prothrombin Time 12.6 sec (9.0-12.0)
[2021-12-27 09:06] LABS: ALT 29 U/L (4-49); AST 38 U/L (17-59); African American GFR (CKD) >90 (>60 ml/min/1.73 sqM); Albumin 3.8 g/dL (3.5-5.0); Alkaline Phosphatase 50 U/L (38-126); Anion Gap 7 mmol/L; Blood Urea Nitrogen 22 mg/dL (9-20); Calcium 9.3 mg/dL (8.4-10.2); Carbon Dioxide 24 mmol/L (22-30); Chloride 109 mmol/L (98-107); Glucose 106 mg/dL (74-99); Non-African American GFR(CKD) 83 (>60 ml/min/1.73 sqM); Potassium 4.5 mmol/L (3.5-5.1); Sodium 140 mmol/L (137-145); Total Bilirubin 0.9 mg/dL (0.2-1.3); Total Protein 6.1 g/dL (6.3-8.2)
[2021-12-27] MEDS ORDERED: SUCCINYLCHOLINE CHLORIDE 100 MG/5 ML SYR IV ONE (11:06)
[2021-12-27] MEDS ORDERED: LIDOCAINE 1% INJ 10MG/ML (20 ML MDV) ONE (11:06)
[2021-12-27] MEDS ORDERED: fentaNYL (PF) 50 MCG/ML 2 ML AMP ONE (11:06)
[2021-12-27] MEDS ORDERED: ROCURONIUM 10 MG/ML (5 ML VIAL) IV ONE (11:06)
[2021-12-27] MEDS ORDERED: PROPOFOL 10 MG/ML 20 ML VIAL IV ONE (11:06)
[2021-12-27] MEDS ORDERED: GLYCOPYRROLATE 0.2 MG/ML 2 ML VIAL ONE (11:06)
[2021-12-27] MEDS ORDERED: NEOSTIGMINE 1 MG/ML 10 ML VIAL ONE (11:06)
[2021-12-27 13:02] VITALS: RESP 16; TEMP 97.2
--- NOTE | 2021-12-27 13:14 | FL ---
Fluoroscopy History: LT URETERAL CALCULOUS fl time 16 sec, lt ureteral caculous
[2021-12-27 13:16] LABS: Glucose,Whole Blood 108 mg/dL (75-99)
[2021-12-27] MEDS ORDERED: hydrALAZINE HCL 20 MG/ML 1 ML VIAL ONE (14:39)
[2021-12-27] MEDS ORDERED: hydrALAZINE HCL 20 MG/ML 1 ML VIAL IV ONE (14:44)
[2021-12-27 15:09] LABS: Glucose,Whole Blood 161 mg/dL (75-99)
[2021-12-27] MEDS ORDERED: LABETALOL SYRINGE 5 MG/ML IV ONE (15:39)
[2021-12-27] MEDS ORDERED: LACTATED RINGERS 1,000 ML IV ONE (16:05)
[2021-12-27] MEDS ORDERED: KETOROLAC 30 MG/ML 1 ML VIAL ONE (16:38)
[2021-12-27] MEDS ORDERED: KETOROLAC 15 MG/ML 1 ML VIAL IVP ONE (16:40)
--- NOTE | 2021-12-27 17:08 | P.OP ---
Date of Procedure: 12/27/21 Preoperative Diagnosis: Left ureteral calculus, left renal calculi Postoperative Diagnosis: Same Procedure(s) Performed: Cystoscopy, left ureteroscopy with Holmium laser lithotripsy, left ureteral stent insertion Anesthesia: MARY ANNE Surgeon: Andrae Hughes Estimated Blood Loss (ml): 30 IV fluids (ml): 600 Pathology: none sent Condition: stable Disposition: PACU Indications for Procedure: The patient is a 81-year-old white male with a history of prostate cancer diagnosed in 2003. He was treated with radiation therapy and androgen deprivation therapy, but his PSA level has recently risen to 15.90. He has been advised to resume androgen deprivation therapy. He has recently experienced left flank discomfort. CT scan shows a 9 x 17 mm left UPJ calculus with a density of approximately 600 Hounsfield units. He was offered the options of ESWL versus ureteroscopy with laser lithotripsy and is chosen to undergo the latter. Operative Findings: Left proximal ureteral calculus, fragmented completely. Multiple left renal calculi localized within a mid pole calyx and a lower pole calyx. Description of Procedure: The patient was taken to the operating room and placed in the dorsolithotomy po sition, with legs supported in Michael stirrups. The external genitalia was prepped and draped sterilely. The 30 lens was used to introduce the 21-[place] King cystoscopic sheath through the urethra and into the bladder under direct vision. The prostatic urethra showed evidence of mild lateral lobe enlargement. The bladder was examined in its entirety. Both ureteral orifices were normal anatomic location and configuration, and clear urine effluxed from both. No tumors or foreign bodies were seen. A 0.038 inch Glidewire was passed through the cystoscope. The left ureteral orifice was cannulated, and the Glidewire was advanced beyond the calculus and up to the left renal pelvis. The cystoscope was removed, and an 11/13-South African ureteral access catheter was passed over the wire, up to the proximal ureter. The Impinj flexible ureteroscope was then passed through the ureteral access catheter sheath, up to the stone. The 272 micron Holmium laser probe was passed through the ureteroscope, and lithotripsy was performed using a dusting technique. After fragmenting this calculus completely, the ureteroscope was advanced up to the left kidney. Several small, round calculi were seen within a mid pole calyx, and multiple similar calculi were seen within a lower pole calyx. These calculi were fragmented using a pop corning technique. Once the calculi were well fragmented, the Glidewire was passed through the ureteroscope, which was removed along with the ureteral access catheter sheath. There was no evidence of ureteral trauma. The Glidewire was backloaded into the cystoscope, which was passed into the bladder. A 28 cm, 6-[place] African double-J ureteral stent was placed over the wire. Proper stent positioning was verified fluoroscopically and endoscopically. The bladder was emptied and the cystoscope removed. The patient tolerated the procedure well and was taken to the recovery room in stable condition. [facility] [place] Report: Procedure Acuity: Semi-Urgent Stone Size and Location: 9 x 17 mm, left proximal ureter Ureteral Dilation: No Ureteral Access Sheath Used: Yes Stone Sent for Analysis: No All Stones/Fragments Were Removed with a Basket: No Complications: No Preoperative Antibiotics Given: Yes Stent Placed: Yes If Stent Placed, Was String Left Attached: No If Stent Placed, When is it to be Removed: 2 weeks Discharge Medications: Toradol, terazosin
[2021-12-27 18:28] VITALS: BP 148/78; PULSE 51
== END 2021-12-27 18:33 | disposition home or self-care (01) ==
LOC: OR 07:43
PROVIDERS: ATTEND Urology
DX: N20.1 Calculus of ureter (principal); N20.0 Calculus of kidney; E11.9 Type 2 diabetes mellitus without complications; I10 Essential (primary) hypertension; E78.5 Hyperlipidemia, unspecified; M19.90 Unspecified osteoarthritis, unspecified site; R41.3 Other amnesia; H91.90 Unspecified hearing loss, unspecified ear; Z85.46 Personal history of malignant neoplasm of prostate; Z92.3 Personal history of irradiation; Z86.718 Personal history of other venous thrombosis and embolism; Z79.84 Long term (current) use of oral hypoglycemic drugs; Z79.82 Long term (current) use of aspirin; Z79.899 Other long term (current) drug therapy; Z79.01 Long term (current) use of anticoagulants; Z88.1 Allergy status to other antibiotic agents; Z91.040 Latex allergy status; Z90.49 Acquired absence of other specified parts of digestive tract; Z98.890 Other specified postprocedural states; Z80.9 Family history of malignant neoplasm, unspecified; Z82.49 Family history of ischemic heart disease and other diseases of the circulatory system; Z88.2 Allergy status to sulfonamides; Z88.8 Allergy status to other drugs, medicaments and biological substances; Z91.09 Other allergy status, other than to drugs and biological substances
CPT/HCPCS: 80053; 85610; 85730; 82365; 74018; 52356; C2625; C1769; C1758; J0360; J1100; J2710; J2405; J1956; J2001; J3010; J1885; J0330; J2704

== ENCOUNTER 2022-01-09 05:58 | Day surgery (SDC) | payer MEDICARE, BC ==
--- NOTE | 2022-01-04 07:53 | P.GSHP ---
History of Present Illness H&P Date: 01/04/22 Chief Complaint: Left flank pain The patient is a 81-year-old white male with a history of prostate cancer diagnosed in 2003. He was treated with radiation therapy and androgen deprivation therapy, but his PSA level has recently risen to 15.90. He has been advised to resume androgen deprivation therapy. He has recently experienced left flank discomfort. CT scan shows a 9 x 17 mm left UPJ calculus with a density of approximately 600 Hounsfield units. He was offered the options of ESWL versus ureteroscopy with laser lithotripsy and chose to undergo the latter on December 27, 2021. The UPJ calculus was fragmented completely. Additional calculi within mid and lower pole calyces were fragmented, and a ureteral stent was placed. He now comes for stent removal, and any remaining calculi will be fragmented with laser lithotripsy and/or removed via stone basketing. - Constitutional Constitutional: Denies chills, Denies fever - Genitourinary (Male) Genitourinary: Reports flank pain, Reports kidney stones Past Medical History Past Medical History: Cancer, Diabetes Mellitus, Deep Vein Thrombosis (DVT), Hearing Disorder / Deafness, Hyperlipidemia, Hypertension, Memory Impairment, Osteoarthritis (OA) Additional Past Medical History / Comment(s): LEFT LEG DVT 06/12/2016. Right Leg DVT over 20 yrs ago after injury , hx of prostate cancer with radiation tx (2001?), positive cologard test. History of Any Multi-Drug Resistant Organisms: None Reported Past Surgical History: Cholecystectomy, Orthopedic Surgery Additional Past Surgical History / Comment(s): RIGHT KNEE SURGERY Past Anesthesia/Blood Transfusion Reactions: Previous Problems w/ Anesthesia Additional Past Anesthesia/Blood Transfusion Reaction / Comment(s): VERY CONFUSED AFTER ANESTHESIA (CHOLECYSTECTOMY) Smoking Status: Never smoker - Past Family History Mother Family Medical History: Cancer Father Family Medical History: Myocardial Infarction ([place]) Medications and Allergies Home Medications Medication Instructions Recorded Confirmed Type Aspirin EC [Ecotrin Low Dose] 81 mg PO DAILY #30 tablet. 06/23/16 12/27/21 Rx Calcium Carbonate [Calcium] 600 mg PO DAILY 08/29/19 12/27/21 History Cholecalciferol [Vitamin D3 (25 1,000 unit PO DAILY 08/29/19 12/27/21 History Mcg = 1000 Iu)] Fish Oil/Dha/Epa [Fish Oil 1,200 1 cap PO DAILY 08/29/19 12/27/21 History mg Fish Oil] lisinopriL [Zestril] 5 mg PO HS 08/29/19 12/27/21 History Diltiazem HCl [Cartia Xt] 180 mg PO HS 03/08/21 12/27/21 History Donepezil HCl [Aricept] 10 mg PO DAILY 03/08/21 12/27/21 History Terazosin [Hytrin] 5 mg PO TID 03/08/21 12/27/21 History Atorvastatin [Lipitor] 40 mg PO DAILY 12/26/21 12/27/21 History Rivaroxaban [Xarelto] 20 mg PO DAILY 12/26/21 12/27/21 History Warfarin [Coumadin] 5 mg PO DAILY 12/26/21 12/26/21 History metFORMIN HCL 500 mg PO BID 12/26/21 12/27/21 History Ketorolac [Toradol] 10 mg PO Q6HR PRN #12 tab 12/27/21 Rx Allergies Allergy/AdvReac Type Severity Reaction Status Date / Time latex Allergy Unknown Rash/Hives Verified 12/27/21 08:02 bacitracin Allergy Rash/Hives Verified 12/27/21 08:02 [From Neosporin ([id number])] bacitracin zinc Allergy Rash/Hives Verified 12/27/21 08:02 [From Neosporin ([id number])] cephalexin monohydrate Allergy Rash/Hives Verified 12/27/21 08:02 [From Keflex] neomycin sulfate Allergy Rash/Hives Verified 12/27/21 08:02 [From Neosporin ([id number])] polymyxin B Allergy Rash/Hives Verified 12/27/21 08:02 [From Neosporin ([id number])] Sulfa (Sulfonamide Allergy Rash/Hives Verified 12/27/21 08:02 Antibiotics) adhesive tape AdvReac Rash/Hives Verified 12/27/21 08:02 ultrasound coupling medium AdvReac Rash/Hives Verified 12/27/21 08:02 Surgical - Exam - General well developed, well nourished, no distress - Respiratory normal expansion, normal respiratory effort - Abdomen Abdomen: soft, non tender, no guarding, no rigid, no rebound - Genitourinary normal penis with no external lesions, testicles non-tender - Psychiatric oriented to time, oriented to person, oriented to place, speech is normal, memory intact Assessment and Plan (1) Calculus of kidney Status: Acute Code(s): N20.0 - CALCULUS OF KIDNEY SNOMED Code(s): 81765226 Plan: Cystoscopy, left ureteral stent removal, left ureteroscopy with Holmium laser lithotripsy and possible stone basketing. He and his family are aware of potential risks, which include anesthesia, bleeding, infection, and ureteral injury.
[2022-01-07 15:05] VITALS: BMI 25.7
[~2022-01-09 05:58] MED LIST changes: -HYDROmorphone 0.5 MG/0.5 ML SYRINGE IVP PRN; -LEVOFLOXACIN 500MG-D5W PMX 500 MG in DEXTROSE/WATER 1 100ML.BAG IVPB PRN
[2022-01-09] MEDS ORDERED: LIDOCAINE 1% (10MG/ML) FOR IV START INTRADERMA ONE (06:55)
[2022-01-09 07:00] LABS: Glucose,Whole Blood 100 mg/dL (75-99)
[2022-01-09] MEDS ORDERED: HYDROmorphone 0.5 MG/0.5 ML SYRINGE IVP PRN (07:00)
[2022-01-09 07:01] LABS: INR 1.2 (<1.2); Prothrombin Time 12.4 sec (9.0-12.0)
--- NOTE | 2022-01-09 07:18 | XR ---
EXAMINATION TYPE: XR KUB DATE OF EXAM: 01/09/2022 COMPARISON: 12/27/2021 HISTORY: Kidney stones with pain TECHNIQUE: One view abdominal series FINDINGS: Hypertrophic degenerative change of the spine. Arthropathy of the hips. Bowel gas pattern nonspecific . Vascular calcifications noted. Large show lower pole left renal calculus is stable. The previously noted left UPJ calculus is no goyo keeley seen. 1 to 2 mm calculus within the proximal left ureteral stent is suspected adjacent to the lef t transverse process of L3. Calcifications in the pelvis are most likely vascular with the exception of 2 tiny 2 mm calculi near the loop of the distal ureteral stent which could be within the bladder. No suspicious right renal calculi seen. IMPRESSION: 1. Large lower pole left renal calculus with interval nonvisualization of the left UPJ calculus. Tiny punctate calculi overlying the proximal and distal stent could be within the ureter and bladder resp ectively. Measure approximately 1 to 2 mm.
[2022-01-09] MEDS ORDERED: GLYCOPYRROLATE 0.2 MG/ML 2 ML VIAL ONE (07:33)
[2022-01-09] MEDS ORDERED: fentaNYL (PF) 50 MCG/ML 2 ML AMP ONE (07:33)
[2022-01-09] MEDS ORDERED: SUCCINYLCHOLINE CHLORIDE 100 MG/5 ML SYR IV ONE (07:33)
[2022-01-09] MEDS ORDERED: LIDOCAINE 1% INJ 10MG/ML (20 ML MDV) ONE (07:33)
[2022-01-09] MEDS ORDERED: PROPOFOL 10 MG/ML 20 ML VIAL IV ONE (07:33)
[2022-01-09] MEDS: LEVOFLOXACIN 500MG-D5W PMX 500 MG in DEXTROSE/WATER 1 100ML.BAG IVPB PRN ×2 (07:38→08:09)
[2022-01-09] MEDS: LACTATED RINGERS 1,000 ML IV ONE ×2 (08:42→12:27)
[2022-01-09] MEDS ORDERED: LACTATED RINGERS 1,000 ML IV ONE (08:42)
--- NOTE | 2022-01-09 10:01 | FL ---
EXAMINATION TYPE: FL guidance operating room DATE OF EXAM: 01/09/2022 HISTORY: Fluoroscopy time 16 seconds of fluoroscopy provided. IMPRESSION: 1. Fluoroscopy time.
[2022-01-09] MEDS ORDERED: KETOROLAC 15 MG/ML 1 ML VIAL IVP ONE ×2 (10:07)
[2022-01-09 10:33] VITALS: TEMP 97.4
[2022-01-09 14:47] VITALS: BP 129/66; PULSE 69; RESP 17
--- NOTE | 2022-01-10 19:09 | P.OP ---
Date of Procedure: 01/09/22 Preoperative Diagnosis: Left renal calculi Postoperative Diagnosis: Same Procedure(s) Performed: Cystoscopy, left ureteroscopy with Holmium laser lithotripsy and stone basketing, left ureteral stent replacement Anesthesia: MARY ANNE Surgeon: Andrae Hughes Estimated Blood Loss (ml): 10 IV fluids (ml): 1,100 Pathology: none sent Condition: stable Disposition: PACU Indications for Procedure: The patient is a 81-year-old white male with a history of prostate cancer diagnosed in 2003. He was treated with radiation therapy and androgen deprivation therapy, but his PSA level has recently risen to 15.90. He has been advised to resume androgen deprivation therapy. He has recently experienced left flank discomfort. CT scan shows a 9 x 17 mm left UPJ calculus with a density of approximately 600 Hounsfield units. He was offered the options of ESWL versus ureteroscopy with laser lithotripsy and chose to undergo the latter on December 27, 2021. The UPJ calculus was fragmented completely. Additional calculi within mid and lower pole calyces were fragmented, and a ureteral stent was placed. Removed calculus fragments showed the calculi to be composed predominantly of calcium oxalate. He now comes for stent removal, and any remaining calculi will be fragmented with laser lithotripsy and/or removed via stone basketing. Operative Findings: Multiple small, round left renal calculi, the majority within a lower pole calyx. All fragmented or basketed. Description of Procedure: The patient was taken to the operating room and placed in the dorsolithotomy position, with legs supported in Michael stirrups. The external genitalia was prepped and draped sterilely. The 30 lens was used to introduce the 21-[place] King cystoscopic sheath through the urethra and into the bladder under direct vision. The prostatic urethra showed evidence of mild lateral lobe enlargement. The bladder was examined in its entirety. No tumors or foreign bodies were seen. The distal end of the left ureteral stent was grasped with grasping forceps and removed along with the cystoscope. A 0.038 inch Glidewire was passed through the stent and up to the left renal pelvis. An 11/13-Scottish ureteral access catheter was passed over the wire, up to the proximal ureter. The flexible ureteroscope was then passed through the ureteral access catheter sheath and advanced under direct vision up to the left renal pelvis. No ureteral calculi were seen. Several calculi were seen within a mid pole calyx, but a lower pole calyx contained over 20 round calculi. The 272 micron Holmium laser probe was passed through the ureteroscope, and lithotripsy was performed. Each calculus was fragmented. Approximately 30 fragments or intact calculi were removed using a 1.9-Scottish nitinol basket. The only remaining calculi at this time were within the lower pole calyx. Laser lithotripsy was used to fragment these utilizing a popcorning technique. One calculus remained intact and was larger than any of the adjacent fragments. This was removed via stone basketing, and measured only approximately 1 mm in size, indicative of how small the remaining calculus fragments were. The ureteroscope was slowly withdrawn under direct vision. There was no evidence of ureteral trauma. The Glidewire was passed through the ureteral access catheter sheath, which was removed. The Glidewire was backloaded into the cystoscope, which was passed into the bladder. A 28 cm, 6-Scottish double-J ureteral stent was placed over the wire. Proper stent positioning was verified fluoroscopically and endoscopically. The bladder was emptied and the cystoscope removed. The patient tolerated the procedure well and was taken to the recovery room in stable condition. [facility] Report: Procedure Acuity: Elective Stone Size and Location: Multiple left lower pole renal calculi measuring up to 4 mm Ureteral Dilation: No Ureteral Access Sheath Used: Yes Stone Sent for Analysis: No All Stones/Fragments Were Removed with a Basket: No Complications: No Preoperative Antibiotics Given: Yes Stent Placed: Yes If Stent Placed, Was String Left Attached: No If Stent Placed, When is it to be Removed: 2 weeks Discharge Medications: Terzaosin
== END 2022-01-09 14:49 | disposition home or self-care (01) ==
LOC: OR 05:58
PROVIDERS: ATTEND Urology
DX: N20.0 Calculus of kidney (principal); E11.9 Type 2 diabetes mellitus without complications; Z86.718 Personal history of other venous thrombosis and embolism; H91.90 Unspecified hearing loss, unspecified ear; E78.5 Hyperlipidemia, unspecified; I10 Essential (primary) hypertension; R41.3 Other amnesia; M19.90 Unspecified osteoarthritis, unspecified site; Z90.49 Acquired absence of other specified parts of digestive tract; Z98.890 Other specified postprocedural states; Z85.46 Personal history of malignant neoplasm of prostate; Z92.3 Personal history of irradiation; Z80.9 Family history of malignant neoplasm, unspecified; Z82.49 Family history of ischemic heart disease and other diseases of the circulatory system; Z87.442 Personal history of urinary calculi; Z79.01 Long term (current) use of anticoagulants; Z79.84 Long term (current) use of oral hypoglycemic drugs; Z79.82 Long term (current) use of aspirin; Z79.899 Other long term (current) drug therapy; Z88.3 Allergy status to other anti-infective agents; Z91.040 Latex allergy status; Z88.2 Allergy status to sulfonamides; Z91.09 Other allergy status, other than to drugs and biological substances
CPT/HCPCS: 52356; 85610; 74018; C1769; C1758; J1100; J2405; J1956; J2001; J3010; J1885; J0330; J2704

== ENCOUNTER → 2022-03-06 | Outpatient (CLI) | payer MEDICARE, BC ==
--- NOTE | 2022-03-06 10:19 | US ---
EXAMINATION TYPE: US kidneys/renal and bladder DATE OF EXAM: 03/06/2022 COMPARISON: CT abdomen and pelvis appear 07/22/2022 CLINICAL HISTORY: N20.0 CALCULUS OF KIDNEY LT. EXAM MEASUREMENTS: Right Kidney: 11.2 x 5.2 x 4.9 cm Left Kidney: 10.7 x 5.0 x 5.4 cm Right Kidney: 1.8cm hypoechoic area superior pole Left Kidney: 2.5cm hypoechoic area superior pole, 2.2cm cystic area inferior pole, 1.1cm echogenic fo cus inferior pole Bladder: not fully distended Right kidney redemonstrates a 1.8 cm benign-appearing thin-walled cyst upper pole level. No hydroneph rosis. Bladder not greatly distended. Bilateral distal ureter jets not seen. Left kidney shows cortical thinning with 2.5 cm thin-walled cyst upper pole level and near 2.0 cm thi n-walled cyst lower pole level corresponding to coronal image 65 series 8. Interval resolution of rakesh or visualized left-sided hydronephrosis. Cyst and nonobstructing left renal calculi up to 1.1 cm in s ize lower pole level noted. IMPRESSION: Interval resolution or successful treatment of obstructing left ureter calculus without h ydronephrosis seen currently. Nonobstructing left renal calculi remain present.
--- NOTE | 2022-03-06 10:35 | XR ---
EXAMINATION TYPE: XR KUB DATE OF EXAM: 03/06/2022 10:29 AM CLINICAL HISTORY: Left-sided kidney stone TECHNIQUE: Two supine KUB images of the abdomen are obtained. COMPARISON: Abdominal x-ray January 09, 2022. FINDINGS: Smaller fragmented calculi lower pole left kidney now seen with approximately 5 calculi donald suring up to 5 mm in size. Definitive right-sided nephrolithiasis. Slightly suboptimal due to overlyi ng colonic fecal debris. Scattered bilateral pelvic phleboliths redemonstrated. Interval removal of l eft double-J ureter stent. Left-sided pelvic vascular calcification. Overall nonobstructive bowel gas pattern. Multilevel spurring in the thoracolumbar spine. Lung bases are clear. Moderate axial joint space loss in both hips. IMPRESSION: As above.
[2022-03-06 16:23] LABS: Testosterone <2.50 ng/mL (86.98-780.10)
== END | disposition home or self-care (01) ==
LOC: RADUSWWP 08:41
PROVIDERS: ATTEND Urology
DX: N20.2 Calculus of kidney with calculus of ureter (principal); C61 Malignant neoplasm of prostate
CPT/HCPCS: 74018; 76770; 84153; 84403

== ENCOUNTER 2022-04-25 12:21 | Day surgery (SDC) | payer MEDICARE, BC ==
[~2022-04-25 12:21] MED LIST changes: +HYDROmorphone 0.5 MG/0.5 ML SYRINGE IVP PRN
[2022-04-25 12:54] LABS: Glucose,Whole Blood 87 mg/dL (70-110)
[2022-04-25 13:19] LABS: INR 1.4 (<1.2); Prothrombin Time 14.2 sec (9.0-12.0)
[2022-04-25] MEDS ORDERED: PROPOFOL 10 MG/ML 20 ML VIAL IV ONE (14:38)
[2022-04-25] MEDS ORDERED: PHENYLEPHRINE-0.9% NACL SYG 1,000 MCG/10 ML SYRINGE ONE (14:38)
[2022-04-25] MEDS ORDERED: fentaNYL (PF) 50 MCG/ML 2 ML AMP ONE (14:38)
[2022-04-25] MEDS ORDERED: LIDOCAINE 2% INJ 20 MG/ML (2 ML VIAL) ONE (14:38)
[2022-04-25] MEDS ORDERED: GLYCOPYRROLATE 0.2 MG/ML 2 ML VIAL ONE (14:38)
[2022-04-25] MEDS ORDERED: ceFAZolin 1,000 MG in SODIUM CHLORIDE 0.9% 1,000 ML IRRIGATION ONE (14:42)
[2022-04-25 15:51] VITALS: TEMP 96.6
--- NOTE | 2022-04-25 15:51 | P.OP ---
Date of Procedure: 04/25/22 Preoperative Diagnosis: Displaced fifth metatarsal fracture with delayed union right foot Postoperative Diagnosis: Same Procedure(s) Performed: Open reduction with internal fixation right fifth metatarsal fracture Implants: 4.5 mm x 60 mm partially threaded headless screw 1.5 mL Augment Anesthesia: MARY ANNE Surgeon: Felipe Tay Estimated Blood Loss (ml): 20 Pathology: none sent Condition: stable Disposition: PACU Description of Procedure: The patient was brought into the operating room and placed on table supine position. Timeout was taken to confirm correct patient identifiers, correct procedure, and correct laterality of surgery. Once all staff in the room were in agreement with the timeout, anesthesia induced the patient and placed them under general anesthetic. A well-padded tourniquet was placed on the right ankle. 15 mL of 0.25% Marcaine was injected as a right ankle block. A bump was placed underneath the right hip to internally rotate the right foot. The right foot was then prepped and draped in the usual manner. The foot was exsanguinated and the tourniquet inflated to 250 mmHg. Utilizing fluoroscopy and outlined and the skin was made proximal to the fifth metatarsal base for the proper placement of the skin incision. The incision was made through the skin and deepened down to the subcutaneous tissue careful to identify, avoid, and retract any neurovascular structures and cauterize any bleeding vessels. Blunt dissection was continued through the subcutaneous layer to the base of the fifth metatarsal. Under direct fluoroscopic visualization, a guidewire for the screw system was placed at the fifth metatarsal tuberosity. It was slowly advanced into the medullary canal but proximal to the fracture line. The trajectory of the pin was checked both on the AP and lateral views to ensure that it stayed within the medullary canal. The wire was then advanced to the fracture line at which point the drill was inserted over the wire and used to pass the sclerotic bone contained within the fracture. Once the drill had gone past the fracture the wire was advanced distally into the medullary canal and the remaining drilling was performed. With the wire still in place the depth gauge was used to determine the correct length of screw. Then the tap was placed over the wire and advanced until the threaded past the fracture line. The tap and wire were removed and then the area was thoroughly irrigated. Then 1.5 mL of Augment was injected directly into medullary canal concentrated near the fracture line. Then a 4.5 mm x 60 mm partially threaded, headless screwwas inserted into the drill hole and advanced until the threads were distal to the fracture line and the head engaged the cortex of the fifth metatarsal base. AP and lateral views with fluoroscopy confirmed the proper placement of the screw. The wound is then irrigated. And then the incision closed with 3-0 nylon. Nonadherent gauze and a bulky dry dressing applied to the right foot. The tourniquet was released and capillary refill return to all digits on the right foot. The patient was then placed in a well-padded, well molded plaster posterior mold/sugar tong splint. The ankle for held in neutral position as the splint dried. Once dried anesthesia was reversed and the patient was taken recovery with vital signs stable.
[2022-04-25] MEDS ORDERED: IV FLUID CONTINUATION 350 ML IV ONE (16:14)
[2022-04-25 16:31] VITALS: BP 171/78; PULSE 49; RESP 18
== END 2022-04-25 16:51 | disposition home or self-care (01) ==
LOC: OR 12:21
PROVIDERS: ATTEND Podiatrist
DX: S92.354K Nondisplaced fracture of fifth metatarsal bone, right foot, subsequent encounter for fracture with nonunion (principal); Z79.899 Other long term (current) drug therapy; Z79.82 Long term (current) use of aspirin; Z79.84 Long term (current) use of oral hypoglycemic drugs; Z79.01 Long term (current) use of anticoagulants; Z86.718 Personal history of other venous thrombosis and embolism; Z85.46 Personal history of malignant neoplasm of prostate; Z88.2 Allergy status to sulfonamides; Z88.3 Allergy status to other anti-infective agents; Z88.8 Allergy status to other drugs, medicaments and biological substances; Z88.1 Allergy status to other antibiotic agents; Z91.09 Other allergy status, other than to drugs and biological substances; I10 Essential (primary) hypertension; E11.9 Type 2 diabetes mellitus without complications; F03.90 Unspecified dementia, unspecified severity, without behavioral disturbance, psychotic disturbance, mood disturbance, and anxiety; Z86.79 Personal history of other diseases of the circulatory system; X58.XXXD Exposure to other specified factors, subsequent encounter; M19.90 Unspecified osteoarthritis, unspecified site; Z91.040 Latex allergy status; Z80.9 Family history of malignant neoplasm, unspecified; Z82.49 Family history of ischemic heart disease and other diseases of the circulatory system
CPT/HCPCS: 85610; 28485; C1713; J1100; J0690 ×2; J2405; J3010; J2370; J2704; J2001